=== PATIENT | male | born 1935 | race Caucasian/White ===

== ENCOUNTER → 2019-04-16 | Outpatient (CLI) | payer MEDICARE, BC ==
--- NOTE | 2019-04-16 10:02 | PCVCIMAG ---
APPROVED REPORT Study performed: 04/16/2019 08:27:45 EXAM: Comprehensive 2D, Doppler, and color-flow Echocardiogram Patient Location: Echo lab Room #: 2Status: routine BSA: 2.19 HR: 52 bpmBP: 158/84 mmHg Rhythm: Bradycardia Other Information Study Quality: Adequate Risk Factors: Cardiac Risk Factors: Hyperlipidemia, HTN Indications Hypertension/HDD 2D Dimensions IVSd: 11.63 (7-11mm)LVOT Diam: 21.00 (18-24mm) LVDd: 44.80 mm PWd: 10.69 (7-11mm)Ascending Ao: 36.52 (22-36mm) LVDs: 26.95 (25-40mm) Left Atrium: 43.64 (27-40mm) Aortic Root: 37.98 mm LV Single Plane 4CH: 58.96 % LV Single Plane 2CH: 70.23 % Biplane EF: 65.2 % Volumes Left Atrial Volume (Systole) Single Plane 4CH: 61.23 mLSingle Plane 2CH: 42.19 mL LA ESV Index: 24.00 mL/m2 Aortic Valve AoV Peak Shaun.: 1.39 m/s AO Peak Gr.: 7.69 mmHg Mitral Valve E/A Ratio: 0.6 MV Decel. Time: 359.19 ms MV E Max Shaun.: 0.58 m/s MV A Shaun.: 0.91 m/s IVRT: 89.97 ms TDI E/Lateral E': 8.29E/Medial E': 7.25 Medial E' Shaun.: 0.08 m/s Lateral E' Shaun.: 0.07 m/s Pulmonary Valve PV Peak Shaun.: 1.15 m/sPV Peak Gr.: 5.25 mmHg DE End Vmax: 1.13 m/s Pulmonary Vein P Vein S: 0.52 m/sP Vein A: 0.32 m/s P Vein D: 0.37 m/sP Vein A Dur.: 100.3 msec P Vein S/D Ratio: 1.41 Tricuspid Valve TR Peak Shaun.: 2.52 m/sRAP Estimate: 7.00 mmHg TR Peak Gr.: 25.43 mmHg PA Pressure: 32.00 mmHg Left Ventricle The left ventricle is normal size. There is normal LV segmental wall motion. Mild concentric left ventricular hypertrophy. Left ventricular systolic function is normal. The left ventricular ejection fraction is within the normal range. LVEF is 65-70%. Mild diastolic dysfunction is present (impaired relaxation pattern). Right Ventricle The right ventricle is normal size. The right ventricular systolic function is normal. Atria The left atrium size is normal. The right atrium size is normal. Aortic Valve The aortic valve is normal in structure. Trace aortic regurgitation. There is no aortic valvular stenosis. Mitral Valve The mitral valve is normal in structure. There is no mitral valve regurgitation noted. No evidence of mitral valve stenosis. Tricuspid Valve The tricuspid valve is normal in structure. Trace tricuspid regurgitation. Pulmonary artery pressure is 32 mmHg. Pulmonic Valve The pulmonary valve is normal in structure. Mild pulmonic regurgitation. Great Vessels The aortic root is normal in size. The ascending aorta is normal in size. IVC is normal in size and collapses >50% with inspiration. Pericardium There is no pericardial effusion. <Conclusion> The left ventricle is normal size. Mild concentric left ventricular hypertrophy. LVEF is 65-70%. Mild diastolic dysfunction is present (impaired relaxation pattern). The right ventricle is normal size. The left atrium size is normal. Trace aortic regurgitation. There is no mitral valve regurgitation noted. Trace tricuspid regurgitation. Pulmonary artery pressure is 32 mmHg. The aortic root is normal in size. There is no pericardial effusion.
== END | disposition home or self-care (01) ==
LOC: PCVCIMAG 09:27
PROVIDERS: ATTEND Internal Medicine Cardiovascular Disease
DX: I11.9 Hypertensive heart disease without heart failure (principal); E78.00 Pure hypercholesterolemia, unspecified; R42 Dizziness and giddiness; Z87.891 Personal history of nicotine dependence; Z79.82 Long term (current) use of aspirin
CPT/HCPCS: 36415; 80061; 93005; 93306; G0463

== ENCOUNTER → 2019-05-29 | Outpatient (CLI) | payer MEDICARE, BC ==
--- NOTE | 2019-05-29 10:38 | PCVCIMAG ---
EXAM: BILATERAL RENAL ULTRASOUND AND BILATERAL RENAL DUPLEX INDICATION: Hypertension FINDINGS: Right kidney: Length measures 11.8 cm. No hydronephrosis or extensive renal scarring. Right renal duplex: Adequate technical quality. No sonographic evidence of renal artery stenosis. The aortic to renal artery ratio is 1.1. The renal vein is patent. Left kidney: Length measures 11.6 cm. No hydronephrosis or extensive renal scarring. Several benign cysts throughout the kidney the largest in the upper pole measuring 1.9 x 2.6 cm. Left renal duplex: Adequate technical quality. No sonographic evidence of renal artery stenosis. The aortic to renal artery ratio is 2.9. The renal vein is patent. Bladder: No obvious abnormalities. IMPRESSION: No significant renal artery stenosis. No hydronephrosis bilaterally. LOC:[id number]
--- NOTE | 2019-05-29 12:57 | PCVCIMAG ---
APPROVED REPORT Study performed: 05/29/2019 09:42:46 Exam: Comprehensive 2D, Doppler, and color-flow Echocardiogram Indication: Hypertension, Hyperlipidemia Patient Location: Echo lab Stress Nurse: Lashae Cazares RN Status: routine Ht: 6 ft 1 in HR: 47 bpm BP: 142/82 mmHg Rhythm: Bradycardia Medical History Cardiac Risk Factors: HTN, Hyperlipidemia Procedure The patient underwent an Exercise Stress Test using the Hunter Protocol. Blood pressure, heart rate, and EKG were monitored. An Echocardiogram was performed by audiovisual technician in four stages in quad fashion. At peak stress, four selected images were obtained and placed side by side with resting images for comparison. Stress Test Details Stress Test: Exercise stress testing was performed using a Hunter protocol. HR Resting HR: 47 bpmMax Heart Rate (APMHR): 138 bpm Max HR Achieved: 103 bpmTarget HR (85% APMHR): 117 bpm % of APMHR: 74 Recovery HR: 59 bpm HR response to stress: Normal HR response to stress BP Resting BP: 142/82 mmHg Max BP: 178/68 mmHg Recovery BP: 132/66 mmHg BP response to stress: Normal blood pressure response to stress. ECG Resting ECG: Sinus Bradycardia Stress ECG: Sinus Rhythm ST Change: Normal Arrhythmia: occasional PVCs Recovery ECG: Sinus Rhythm Recovery ST Change: Normal Recovery Arrhythmia: None Clinical Reason for Termination: Maximal effort, leg fatigue Stress Symptoms: Dyspnea, leg fatigue Exercise duration: 7 min 5 sec Highest Stage Achieved: Stage 3: 3.4 mph at 14% grade. Exercise capacity: 10.1 METs Overall Exercise Capacity for Age: Normal Angina Score: None Pre-Stress Echo The resting Echocardiogram showed normal left ventricular contractility with an estimated Ejection Fraction of about >55%. Normal wall motion in all segments on baseline images. Post-Stress Echo The stress Echocardiogram showed normal left ventricular contractility with an estimated Ejection Fraction of about 65%. Normal augmentation of wall motion in all segments on post stress images. Clinical No clinical or ECG evidence for ischemia. Conclusion Clinical Response: Non-ischemic Exercise Capacity: Average Stress ECG Response: Equivocal Stress Echo Images: Non-ischemic Non-diagnostic study due to inability of the patient to achieve 85% of maximal HR, however patient did more than double his resting heart rate. The left ventricle is normal in size and mild LVH in both the rest and stress images. 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 Trace aortic insufficiency without stenosis. Mild pulmonic regurgitation. Mild tricuspid regurgitation with PAP of 38 mmHg. Trace mitral regurgitation. Other Information Study Quality: Adequate <Conclusion> Non-diagnostic study due to inability of the patient to achieve 85% of maximal HR, however patient did more than double his resting heart rate. The left ventricle is normal in size and mild LVH in both the rest and stress images. 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 Trace aortic insufficiency without stenosis. Mild pulmonic regurgitation. Mild tricuspid regurgitation with PAP of 38 mmHg. Trace mitral regurgitation.
== END | disposition home or self-care (01) ==
LOC: PCVCIMAG 08:52
PROVIDERS: ATTEND Internal Medicine Cardiovascular Disease
DX: I08.8 Other rheumatic multiple valve diseases (principal); I10 Essential (primary) hypertension; E78.00 Pure hypercholesterolemia, unspecified; E78.5 Hyperlipidemia, unspecified
CPT/HCPCS: 76770; 93325; 93351; 93975